=== PATIENT | male | born 1965 | race Caucasian/White ===

== ENCOUNTER → 2016-10-01 | Day surgery (SDC) | payer BC, OTHER ==
[~2016-10-01] VITALS: Ht 180.3 cm; Wt 127.3 kg
[~2016-10-01] MED LIST: CPR500 PO; CYM/30 PO; LIDOCAINE HCL 2% 2 ML VIAL (20MG/ML) ONE; LXP10 PO; MIDAZOLAM HCL 1 MG/ML 2ML VIAL ONE; MTR500 PO; MULT-506 PO; OXYC-57 PO; PANT1TAB48 PO; PANT40TA PO; PROPOFOL IV EMULSION 10 MG/ML 20 ML VIAL IV ONE; SODIUM CHLORIDE 0.9% 500ML 500 ML IV ONE
[2016-10-01 11:08] VITALS: Ht 180.3 cm; Wt 127.3 kg
--- NOTE | 2016-10-01 12:50 | Endo History and Physical ---
History & Physical Date of Service: Oct 01, 2016. Chief Complaint: Screening; Hx Diverticulitis Referring Physician: Heron Alaniz History of Present Illness 50 yo CM who presents for screening colonoscopy. Past Surgical History Hx Cardiac Surgery: No Hx Internal Defibrillator: No Hx Pacemaker: No Hx Abdominal Surgery: No Hx of Implantable Prosthesis: No Hx Post-Op Nausea and Vomiting: No Hx Cancer Surgery: No Hx Thoracic Surgery: No Hx Orthopedic: No Hx Urinary Tract Surgery: No Family History Polyp Social History Smoking Status: Never Smoker Hx Substance Use: No Hx Alcohol Use: Yes Allergies Coded Allergies: No Known Allergies (Unverified , 07/01/16) Current Medications Reported Home Medications Medications Dose Route/Sig Max Daily Dose Days Date Category Cymbalta (Duloxetine HCl) 30 Mg Cap 1 Cap PO DAILY 30 10/01/16 Reported Protonix (Pantoprazole) 40 Mg Tab 40 Mg PO DAILY 07/07/16 Rx Escitalopram Oxalate 10 Mg Tab 10 Mg PO QAM 07/03/16 Rx Metronidazole 500 Mg Tab 500 Mg PO TID 07/03/16 Rx Ciprofloxacin HCl (Ciprofloxacin) 500 Mg Tab 500 Mg PO BID 07/03/16 Rx Vital Signs Weight (Kilograms): 127.27 Height (Feet): 5 Height (Inches): 11 Date Time Temp Pulse Resp B/P Pulse Ox O2 Delivery O2 Flow Rate FiO2 10/01/16 11:17 37 62 20 136/80 99 Room Air Physical Exam General Appearance: WD/WN, no apparent distress Respiratory/Chest: Auscultation: breath sounds normal Cardiovascular: Heart Auscultation: RRR Abdomen: Bowel Sounds: normal Inspection & Palpation: soft, non-distended, no tenderness, guarding & rebound Assessment and Plan Assessment: 50 yo CM who presents for screening colonoscopy. Plan: Proceed with colonoscopy.
--- NOTE | 2016-10-01 13:05 | Discharge Instructions ---
Endoscopy Patient Instructions Date / Procedure(s) Performed Oct 01, 2016. Colonoscopy Allergy Information Coded Allergies: No Known Allergies (Unverified , 07/01/16) Discharge Date / Findings Oct 01, 2016. Colon polyp Diverticulosis Medication Instructions OK to resume all medications today as prescribed. Reported Home Medications Medications Dose Route/Sig Max Daily Dose Days Date Category Cymbalta (Duloxetine HCl) 30 Mg Cap 1 Cap PO DAILY 30 10/01/16 Reported Protonix (Pantoprazole) 40 Mg Tab 40 Mg PO DAILY 07/07/16 Rx Escitalopram Oxalate 10 Mg Tab 10 Mg PO QAM 07/03/16 Rx Metronidazole 500 Mg Tab 500 Mg PO TID 07/03/16 Rx Ciprofloxacin HCl (Ciprofloxacin) 500 Mg Tab 500 Mg PO BID 07/03/16 Rx Provider Instructions Activity Restrictions - No exercising or heavy lifting for 24 hours. - Do not drink alcohol the day of the procedure. - Do not drive a car or operate machinery until the day after the procedure. - Do not make any important decisions or sign important papers in 24 hours after the procedure. Following Day: - Return to full activity which may include returning to work/school. Diet Start your diet with liquids and light foods (jello, soup, juice, toast). Then eat your usual diet if not nauseated. Treatment For Common After Affects For mild abdominal pain, bloating, or excessive gas: - Rest - Eat lightly - Lie on right side Follow-Up Information Follow-up with Heron Alaniz as scheduled Anesthesia Information What You Should Know You have had a procedure that required some medicine to reduce anxiety and discomfort. This treatment is called moderate sedation. After receiving the treatment, you may be sleepy, but you will be able to breathe on your own. The effects of the treatment may last for several hours. Follow these instructions along with Activity/Diet recommendations noted above: * Do NOT do anything where dizziness or clumsiness would be dangerous. * Rest quietly at home today, then you can be up and about tomorrow. * Have a responsible person stay with you the rest of today. * You may have had an I.V. today. If so, you may take the dressing off later today. Recommendations Call your doctor if: * Trouble breathing * Continuous vomiting for more than 24 hours * Temperature above 101 degrees * Severe abdominal pain or bloating * Pain not relieved by pain medicine ordered * There is increased drainage or redness from any incision * A large amount of rectal bleeding greater than 2-3 tablespoons. (If you had a polyp/s removed or have hemorrhoids, a small amount of blood - from the rectum is to be expected.) * You have any unanswered questions or concerns. IN THE EVENT OF A SERIOUS EMERGENCY, GO TO THE NEAREST EMERGENCY ROOM Your discharge instructions were prepared by provider Jeferson Gray. Patient Instructions Signature Page Clifford Guzman Patient (or Guardian) Signature/Date: I have read and understand the instructions given to me by my caregivers. Caregiver/RN/Doctor Signature/Date: The above-named patient and/or guardian has received patient instructions on this date. + Original Patient Signature Page (only) stays with chart. Please make copy for patient.
--- NOTE | 2016-10-01 13:09 | GI REPORT ---
Procedure Date: 10/01/2016 11:59 AM Procedure: Colonoscopy Indications: Screening for colorectal malignant neoplasm Medicines: Monitored Anesthesia Care Complications: No immediate complications. Estimated Blood Loss: Estimated blood loss: none. Procedure: Pre-Anesthesia Assessment: - Prior to the procedure, a History and Physical was performed, and patient medications and allergies were reviewed. The patient's tolerance of previous anesthesia was also reviewed. The risks and benefits of the procedure and the sedation options and risks were discussed with the patient. All questions were answered, and informed consent was obtained. Prior Anticoagulants: The patient has taken no previous anticoagulant or antiplatelet agents. ASA Grade Assessment: II - A patient with mild systemic disease. After reviewing the risks and benefits, the patient was deemed in satisfactory condition to undergo the procedure. After I obtained informed consent, the scope was passed under direct vision. Throughout the procedure, the patient's blood pressure, pulse, and oxygen saturations were monitored continuously. The scope was introduced through the anus and advanced to the terminal ileum. The colonoscopy was performed without difficulty. The patient tolerated the procedure well. The quality of the bowel preparation was good. The terminal ileum, ileocecal valve, appendiceal orifice, and rectum were photographed. Findings: A 5 mm polyp was found in the transverse colon. The polyp was sessile. The polyp was removed with a hot snare. Resection and retrieval were complete. Multiple small-mouthed diverticula were found in the sigmoid colon. Impression: - One 5 mm polyp in the transverse colon, removed with a hot snare. Resected and retrieved. - Diverticulosis in the sigmoid colon. Recommendation: - Resume previous diet. - Continue present medications. - Repeat colonoscopy for surveillance based on pathology results. - Return to primary care physician as previously scheduled. Jeferson Gray DO 10/01/2016 1:09:24 PM This report has been signed electronically. Note Initiated On: 10/01/2016 11:59 AM
[2016-10-01 13:37] VITALS: BP 107/68; PULSE 67; O2SAT 97
--- NOTE | 2016-10-01 15:13 | Anesthesiology Progress Note ---
Anesthesia Post Op Note Date & Time Oct 01, 2016 at 15:13 Vital Signs Pain Intensity: 0 Vital Signs Past 12 Hours Date Time Temp Pulse Resp B/P Pulse Ox O2 Delivery O2 Flow Rate FiO2 10/01/16 13:37 67 20 107/68 97 Room Air 10/01/16 13:22 67 20 112/70 99 Room Air 10/01/16 13:07 58 20 100/44 96 Room Air 10/01/16 11:17 37 62 20 136/80 99 Room Air Notes Mental Status: alert / awake / arousable, participated in evaluation Pt Amnestic to Procedure: Yes Nausea / Vomiting: adequately controlled Pain: adequately controlled Airway Patency, RR, SpO2: stable & adequate BP & HR: stable & adequate Hydration State: stable & adequate Anesthetic Complications: no major complications apparent
== END | disposition home or self-care (01) ==
LOC: C.GI 10:55
PROVIDERS: ATTEND Internal Medicine
DX: Z12.11 Encounter for screening for malignant neoplasm of colon (principal); D12.3 Benign neoplasm of transverse colon; K57.90 Diverticulosis of intestine, part unspecified, without perforation or abscess without bleeding; Z83.71 Family history of colonic polyps

== ENCOUNTER → 2016-10-17 | Outpatient (CLI) | payer OTHER ==
[~2016-10-17] MED LIST changes: -LIDOCAINE HCL 2% 2 ML VIAL (20MG/ML) ONE; -MIDAZOLAM HCL 1 MG/ML 2ML VIAL ONE; -PROPOFOL IV EMULSION 10 MG/ML 20 ML VIAL IV ONE; -SODIUM CHLORIDE 0.9% 500ML 500 ML IV ONE
[2016-10-17 12:44] LABS: BASO % 0.5 %; BASO ABS # 0.03 K/uL (0-0.2); COMPLETE YES; EOS % 3.7 %; HEMATOCRIT 46.8 % (42-52); IG% 0.2 %; LYMPH % 30.4 %; LYMPH ABS # 1.96 K/uL (1.2-3.4); MEAN CELL VOLUME 90.9 fL (80-100); MEAN CORPUSCULAR HEMOGLOBIN 30.7 pg (25-34); MEAN CORPUSCULAR HGB CONC 33.8 g/dl (32-36); MONO % 12.3 %; NEUT % 52.9 %; PLATELET COUNT 255 K/uL (130-400); RED BLOOD COUNT 5.15 M/uL (4.7-6.1); WHITE BLOOD COUNT 6.44 K/uL (4.8-10.8)
[2016-10-17 12:53] LABS: URINE APPEARANCE CLEAR (CLEAR); URINE BILIRUBIN NEG (NEG); URINE COLOR YELLOW; URINE EPITHELIAL CELL AUTO 0-5 /lpf (0-5); URINE NITRITE NEG (NEG); URINE SPECIFIC GRAVITY 1.025 (1.000-1.030); UROBILINOGEN NEG (NEG); ZZUR CULT IF INDIC CLEAN CATCH NO
[2016-10-17 12:58] LABS: MANUAL MICROSCOPIC REQUIRED? NO; REVIEW REQ? NO
[2016-10-17 13:05] LABS: CHOLESTEROL/HDL RATIO 4.2; PROSTATE SPECIFIC ANTIGEN 0.923 ng/ml (0.000-4.000); THYROID STIMULATING HORMONE 2.62 uIu/ml (0.300-4.500)
== END | disposition home or self-care (01) ==
LOC: C.LABBFT 07:38
PROVIDERS: ATTEND Internal Medicine
DX: Z12.5 Encounter for screening for malignant neoplasm of prostate (principal); Z13.6 Encounter for screening for cardiovascular disorders; R80.9 Proteinuria, unspecified; D64.9 Anemia, unspecified; E66.01 Morbid (severe) obesity due to excess calories

== ENCOUNTER → 2016-11-01 | Outpatient (CLI) | payer OTHER ==
[2016-11-01 13:22] LABS: URINE APPEARANCE CLEAR (CLEAR); URINE BILIRUBIN NEG (NEG); URINE COLOR YELLOW; URINE EPITHELIAL CELL AUTO 0-5 /lpf (0-5); URINE NITRITE NEG (NEG); URINE SPECIFIC GRAVITY 1.019 (1.000-1.030); UROBILINOGEN NEG (NEG); ZZUR CULT IF INDIC CLEAN CATCH NO
[2016-11-01 13:24] LABS: MANUAL MICROSCOPIC REQUIRED? NO; REVIEW REQ? NO
== END | disposition home or self-care (01) ==
LOC: C.LABSPEC 12:32
PROVIDERS: ATTEND Internal Medicine
DX: R31.29 Other microscopic hematuria (principal)

== ENCOUNTER 2016-12-04 05:15 | Day surgery (SDC) | payer OTHER ==
[2016-11-14 14:29] VITALS: BMI 41.0
--- NOTE | 2016-11-14 15:02 | PAT Medication Instructions ---
Service Date Nov 14, 2016. Current Home Medication List Duloxetine HCl (Cymbalta), 1 CAP PO QPM Multivitamin (Multivitamin), 1 TAB PO QAM Pantoprazole (Protonix), 40 MG PO QAM Medication Instructions For Your Scheduled Surgery - Hold the following medications the morning of surgery: Multivitamin (Multivitamin), 1 TAB PO QAM - Take the following medications the morning of surgery with a sip of water: Pantoprazole (Protonix), 40 MG PO QAM - Take the following medications as scheduled the night before surgery: Duloxetine HCl (Cymbalta), 1 CAP PO QPM If you have any questions please call us at [phone] or [phone] ( Noreen) or [phone]
[2016-11-14 16:50] LABS: CALCIUM 8.9 mg/dl (8.5-10.1); CREATININE 1.1 mg/dl (0.60-1.40); POTASSIUM 3.7 mmol/L (3.5-5.1)
[~2016-12-04] VITALS: Ht 180.3 cm; Wt 133.3 kg
[~2016-12-04 05:15] MED LIST changes: -CPR500 PO; -LXP10 PO; -MTR500 PO; -OXYC-57 PO; -PANT1TAB48 PO
[2016-12-04 05:45] VITALS: BP 133/83; PULSE 59; TEMP 37; O2SAT 96; Ht 180.3 cm; Wt 133.3 kg
[2016-12-04] MEDS ORDERED: LACTATED RINGER'S 1000ML 1,000 ML IV SCH ×2 (06:00→07:58)
--- NOTE | 2016-12-04 06:32 | History & Physical Bridge Note ---
H&P Re-Evaluation Bridge Note: I have examined the patient, reviewed the History & Physical and in the interval since the performance of the History & Physical I have noted the following changes of clinical significance: No changes noted pt marked, at bedside
[2016-12-04] MEDS ORDERED: BUPIVACAINE 0.5 % 5 MG/1 ML MPF 30ML VIAL ONE (06:41)
[2016-12-04] MEDS ORDERED: BACITRACIN 50000 UNIT VIAL ONE (06:42)
[2016-12-04] MEDS ORDERED: LIDOCAINE HCL 2% 2 ML VIAL (20MG/ML) ONE (06:43)
[2016-12-04] MEDS ORDERED: ROCURONIUM BROMIDE 10 MG/ML 5 ML VIAL ONE (06:43)
[2016-12-04] MEDS ORDERED: PROPOFOL IV EMULSION 10 MG/ML 20 ML VIAL IV ONE (06:43)
[2016-12-04] MEDS ORDERED: FENTANYL CITRATE INJ 50 MCG/1 ML 2 ML VIAL ONE ×3 (06:43→08:27)
[2016-12-04] MEDS ORDERED: MIDAZOLAM HCL 1 MG/ML 2ML VIAL ONE (06:43)
[2016-12-04] MEDS ORDERED: ONDANSETRON INJ 2 MG/ML 2 ML VIAL ONE (07:20)
[2016-12-04] MEDS ORDERED: EpHEDrine SULFATE INJ 50 MG/ML AMP ONE (07:20)
[2016-12-04] MEDS ORDERED: CEFAZOLIN SOD 1 GM VIAL ONE (07:20)
[2016-12-04] MEDS ORDERED: DEXAMETHASONE SOD INJ 4 MG/ML VIAL ONE (07:20)
[2016-12-04] MEDS ORDERED: EpHEDrine SULFATE INJ 50 MG/ML AMP IV PRN (07:45)
[2016-12-04] MEDS ORDERED: ATROPINE SULFATE 0.1 MG/ML 5ML SYR IV PRN (07:45)
[2016-12-04] MEDS ORDERED: ONDANSETRON INJ 2 MG/ML 2 ML VIAL IV PRN ×2 (07:45→08:00)
[2016-12-04] MEDS ORDERED: HYDROmorphone INJ 0.5 MG/0.5 ML SYR IV PRN (07:45)
[2016-12-04] MEDS ORDERED: FENTANYL CITRATE INJ 50 MCG/1 ML 2 ML VIAL IV PRN (07:45)
--- NOTE | 2016-12-04 07:59 | [facility] Post Operative Brief Note ---
Immediate Operative Summary Operative Date Dec 04, 2016. Pre-Operative Diagnosis Incarcerated Umbilical Hernia Post-Operative Diagnosis Same as preoperative Procedure(s) Performed Open Umbilical Hernia Repair with Mesh and resection inc omentum Surgeon Dr. William Lora Displayer Merchandise Surgeon(s) Bacilio Pollack PA-C Estimated Blood Loss 5ml Findings sixto 2 cm defect with lobulated inc omentum Specimens A.) Incarcerated Omentum Anesthesia .5% marcaine premptive and field block
[2016-12-04] MEDS ORDERED: KETOROLAC TROMETHAMINE 30 MG/ML VIAL IV. PRN (08:00)
[2016-12-04] MEDS ORDERED: MoRPHine SULFATE 2 MG/ML CARP IV PRN (08:00)
[2016-12-04] MEDS ORDERED: OXYC-57 PO (08:00)
--- NOTE | 2016-12-04 08:02 | Medical Student: [facility] ---
Immediate Operative Summary Operative Date Dec 04, 2016. Pre-Operative Diagnosis Umbilical hernia Post-Operative Diagnosis Same as above Procedure(s) Performed Open umbilical hernia repair with mesh Surgeon Dr. Lora Echocardiologist Surgeon(s) Bacilio Murillo PA-C Estimated Blood Loss 5 mL Findings Umbilical hernia protruding from abdominal wall Fluids (cc crystalloids) 800 cc Specimens Omentum Drains None Anesthesia LMA/Block Complication(s) None Disposition Recovery Room / PACU
--- NOTE | 2016-12-04 08:02 | Discharge Instructions ---
Discharge Instructions Date of Service Dec 04, 2016. Visit Reason for Visit: Umbilical Hernia Discharge Discharge Diagnosis / Problem: umbilical hernia repiar Discharge Goals Goal(s): Decrease discomfort Activity Recommendations Activity Limitations: as noted below Lifting Limitations: no more than 10 pounds Shower/Bathe: tomorrow (shower over bandage it is waterproof, remove bandage in 2-3 days) Driving or Machine Use: resume 3 days after discharge (if not taking Percocet) Anesthesia . Post Anesthesia Instructions: If you have had General Anesthesia or IV Sedation: * Do not drive today. * Resume driving when surgeon permits. * Do not make important decisions or sign legal documents today. * Call surgeon for: 1. Temperature elevations greater than 101 degrees F. 2. Uncontrollable pain. 3. Excessive bleeding. 4. Persistent nausea and vomiting. 5. Medication intolerance (nausea, vomiting or rash). * For nausea and vomiting use only clear liquids such as: tea, soda, bouillon until nausea subsides, then gradually increase diet as tolerated. * If you have any concerns or questions, call your surgeon's office. If physician is unavailable and it is an emergency, call 911 or go to the nearest emergency room. . Instructions / Follow-Up Instructions / Follow-Up Dr. Lora in 1 week, call [phone] if you do not already have an appt or for any questions Diet Recommendations Recommended Home Diet: no limitations Procedures Procedures Performed: Open Umbilical Hernia Repair with Mesh and resection inc omentum Pending Studies Studies pending at discharge: no Medical Emergencies . Who to Call and When: Medical Emergencies: If at any time you feel your situation is an emergency, please call 911 immediately. . Non-Emergent Contact Non-Emergency issues call your: Surgeon Call Non-Emergent contact if: you have a fever, temperature is above 101.5, your pain is not controlled, wound has increased drainage, wound has increased redness . . "Provider Documentation" section prepared by Bacilio Pollack.
[2016-12-04] MEDS ORDERED: OXYCODONE/ACETAMINOPHEN 5-325 TAB PO PRN (08:15)
--- NOTE | 2016-12-04 08:38 | Anesthesiology Progress Note ---
Anesthesia Post Op Note Date & Time Dec 04, 2016 at 08:39 Vital Signs Pain Intensity: 5 Vital Signs Past 12 Hours Date Time Temp Pulse Resp B/P Pulse Ox O2 Delivery O2 Flow Rate FiO2 12/04/16 08:33 65 12 12/04/16 08:33 62 12 90 12/04/16 08:30 121/84 12/04/16 08:28 63 12 12/04/16 08:28 64 12 91 12/04/16 08:25 125/85 12/04/16 08:23 69 16 12/04/16 08:23 69 16 91 12/04/16 08:20 135/87 12/04/16 08:18 71 17 99 12/04/16 08:18 71 17 12/04/16 08:15 132/88 12/04/16 08:13 74 10 99 12/04/16 08:13 74 10 12/04/16 08:10 134/88 12/04/16 08:08 70 13 98 12/04/16 08:08 71 13 12/04/16 08:05 133/88 12/04/16 08:03 72 15 97 12/04/16 08:03 72 15 12/04/16 08:00 141/87 12/04/16 07:58 72 13 139/82 96 12/04/16 07:58 72 13 12/04/16 07:58 36.3 78 14 139/82 96 Mask 10 12/04/16 05:45 37 59 18 133/83 96 Room Air Notes Mental Status: alert / awake / arousable, participated in evaluation Pt Amnestic to Procedure: Yes Nausea / Vomiting: adequately controlled Pain: adequately controlled Airway Patency, RR, SpO2: stable & adequate BP & HR: stable & adequate Hydration State: stable & adequate Anesthetic Complications: no major complications apparent
[2016-12-04 08:50] VITALS: BP 132/85; PULSE 73; TEMP 36.8; O2SAT 92
--- NOTE | 2016-12-04 09:02 | OPERATIVE REPORT ---
DATE OF OPERATION: 12/04/2016 SURGEON: William Lora MD TONE ARTIST APPRENTICE: Bacilio Pollack PA-C PREOPERATIVE DIAGNOSIS: Incarcerated umbilical hernia. POSTOPERATIVE DIAGNOSIS: Same multilobular. PROCEDURE: Repair of incarcerated umbilical hernia and partial resection of incarcerated omentum and repair was done with 4.3 cm C-Qur mesh. DESCRIPTION OF PROCEDURE: The patient was brought into the operating room theater. The abdomen was shaved, and prepped with Betadine scrubbing solution and properly draped. Systemic antibiotics were given. We used 0.5% Marcaine without epinephrine to infiltrate 4-point around the umbilical area. The defect itself appeared to be coming through centrally in the umbilical tissue. We made a smiley incision from 3-9 o'clock position, deepened through subcutaneous tissue. We went onto the abdominal wall and identified the fascia inferiorly and we dissected out the incarcerated hernia from the omental tissue, paying attention not to devascularize the skin itself. We used a knife rather than a cautery for most of this freeing up the hernia sac. Once we had freed this up, we were able to reduce it partially in the abdomen. It was mostly adherent to the anterior abdominal wall at the defect. Once we freed this up, there was a septated area on the right side. We just divided it and reduced everything into the abdomen placing a finger underneath it. He has some little oozing that we controlled. There was a piece of omentum that continued to protrude through and we resected that. Once we had outlined this, the defect maybe 2.5 cm in length. Therefore, I elected to bring a 4.3 cm C-Qur mesh and laid into the abdomen. The outer ring was then attached in at least 4-6 places to take sutures from outside the mesh, onto the mesh, and back outside, so it was adherent to the anterior abdominal wall. The 2 strands were then sutured along the fascial defect without any tension on the defect itself and then we put some more interrupted 2-0 nylon sutures around the outer ring. The repair appeared to be solid and it was tension free. The area was checked for hemostasis and appeared satisfactory. We then used more local anesthetic of 0.5% Marcaine to infiltrate around the defect itself. Closed the wound in 2-0 Dexon reattaching the umbilical tissue onto the mesh itself and shira for skin edges. Dressing was applied. The procedure was tolerated well by the patient. Estimated blood loss was approximately 5 mL. The patient was taken to recovery room in good condition. I attest to the content of the Intraoperative Record and any orders documented therein. Any exceptio ns are noted below.
[2016-12-04 09:20] VITALS: BP 122/74; PULSE 74; O2SAT 94
[2016-12-04] MEDS ORDERED: KETOROLAC TROMETHAMINE 30 MG/ML VIAL ONE (09:29)
[2016-12-04 09:50] VITALS: BP 127/74; PULSE 76; TEMP 36.5; O2SAT 96
== END 2016-12-04 10:10 | disposition home or self-care (01) ==
LOC: C.ACU 05:15
PROVIDERS: ATTEND Surgery
DX: K42.0 Umbilical hernia with obstruction, without gangrene (principal); F41.8 Other specified anxiety disorders; K21.9 Gastro-esophageal reflux disease without esophagitis; E66.01 Morbid (severe) obesity due to excess calories; Z87.891 Personal history of nicotine dependence

== ENCOUNTER → 2016-12-28 | Outpatient (CLI) | payer OTHER ==
[~2016-12-28] VITALS: Ht 180.3 cm; Wt 133.1 kg
[~2016-12-28] MED LIST changes: +OXYC-57 PO
[2016-12-28 13:39] VITALS: BP 131/86; PULSE 70; Ht 180.3 cm; Wt 133.1 kg
== END | disposition home or self-care (01) ==
LOC: C.NEUR 12:34
PROVIDERS: ATTEND Internal Medicine Pulmonary Disease
DX: R06.83 Snoring (principal); E66.01 Morbid (severe) obesity due to excess calories; R53.83 Other fatigue

== ENCOUNTER → 2017-01-14 | Outpatient (CLI) | payer OTHER ==
--- NOTE | 2017-01-17 10:49 | POLYSOMNOGRAPH REPORT ---
CLINICAL DATA: A 51-year-old male with BMI of 40.9 referred by myself and Dr. Alaniz with symptoms of loud snoring to the point where his sleeps in another room and episodes of gasping at night with fatigue. On the evening of 01/14/2017, a home sleep apnea test was performed using a myJambi type 3 monitor. RECORDING RESULTS: Total recording time was 10 hours. The patient's estimated sleep time and the patient monitoring time was 9 hours. RESPIRATORY DATA: Moderate sleep apnea was documented. The AURA was 16.7. There were 8 obstructive apneic episodes and 142 hypopneic episodes recorded. The longest respiratory event recorded was 51 seconds. OXIMETRY DATA: Nocturnal hypoxemia was seen. Oxygen korin was 76%. Mean saturation was 93%. Time below 89% was 34 minutes. HEART RATE DATA: Heart rates ranged from 45-58 beats per minute. SNORING DATA: Loud snoring was recorded throughout the entire night. IMPRESSION: Moderate sleep apnea/hypopnea. RECOMMENDATIONS: The patient may benefit from use of auto CPAP, a repeat sleep study with CPAP, or use of an oral appliance. Clinical correlation is needed. DENISE
== END | disposition home or self-care (01) ==
LOC: C.NEUR 08:35
PROVIDERS: ATTEND Internal Medicine Pulmonary Disease
DX: G47.30 Sleep apnea, unspecified (principal); R53.83 Other fatigue; E66.01 Morbid (severe) obesity due to excess calories; R06.83 Snoring

== ENCOUNTER 2022-01-17 16:05 | Observation (INO) ==
[2022-01-17] MEDS ORDERED: SODIUM CHLORIDE 0.9% 1000ML 1,000 ML IV ONE (16:16)
[2022-01-17] MEDS ORDERED: MULTI-VITAMIN INFUSION 10 ML, THIAMINE HCL 100 MG, FOLIC ACID 1 MG in SODIUM CHLORIDE 0... IV ONE (16:28)
[2022-01-17 16:42] LABS: Basophils # (auto) 0.03 K/uL (0-0.2); Basophils % (auto) 0.3 %; Eosinophils # (auto) 0.11 K/uL (0-0.5); Hematocrit (blood only) 45.3 % (42-52); Immature Granulocytes # (auto) 0.02 K/uL (0.00-0.02); Immature Granulocytes % (auto) 0.2 %; Lymphocytes # (auto) 1.85 K/uL (1.2-3.4); Lymphocytes % (auto) 17.6 %; Mean Corpuscular Hemoglobin 30.4 pg (25-34); Mean Corpuscular Hgb Conc 33.1 g/dL (32-36); Mean Corpuscular Volume 91.7 fL (80-100); Mean Platelet Volume 10.8 fL (7.4-10.4); Monocytes % (auto) 9.5 %; Neutrophils # (auto) 7.53 K/uL (1.4-6.5); Neutrophils % (auto) 71.4 %; Platelet Count 276 K/uL (130-400); RDW Coefficient of Variation 13.1 % (11.5-14.5); RDW Standard Deviation 43.7 fL (36.4-46.3); Red Blood Count 4.94 M/uL (4.7-6.1); White Blood Count 10.54 K/uL (4.8-10.8)
--- NOTE | 2022-01-17 17:10 | CT Scan Report ---
CT head/brain wo con CLINICAL HISTORY: 56 years-old Male with syncope, fall, R periorbital contusion/hematoma. Acute post traumatic head and facial injury TECHNIQUE: Multiple axial CT images of the head were obtained without contrast. A dose lowering tech nique was utilized adhering to the principles of ALARA. COMPARISON: CT maxillofacial same day. FINDINGS: No acute intracranial hemorrhage, midline shift, intracranial mass, hydrocephalus, territorial ischem ia or abnormal extra-axial collection. Mild involutional changes. Calcifications of the falx cerebri. The calvarium is intact. 9.6 x 1.4 cm right supraorbital/periorbital hematoma. The paranasal sinuses, mastoid air cells, and middle ear cavities are clear. IMPRESSION: 1. No acute intracranial abnormality. 2. Large right supraorbital/periorbital hematoma. ACT 112: Negative or not required by law. The above report was generated using voice recognition software. It may contain grammatical, syntax o r spelling errors. Electronically signed by: Karri Hallman M.D. 01/17/2022 5:08 PM
--- NOTE | 2022-01-17 17:13 | CT Scan Report ---
CT facial bones wo con CLINICAL HISTORY: 56 years-old Male presenting with syncope, fall, R periorbital contusion/hematoma. Acute right-sided facial injury status post fall COMPARISON STUDY: Head CT of same day TECHNIQUE: High-resolution CT scan of the facial bones is performed. Images are reviewed in the axia l, sagittal, and coronal planes. IV contrast was not administered for this examination. A dose lower ing technique was utilized adhering to the principles of ALARA. CT DOSE: 886.89 mGy.cm FINDINGS: There is no evidence of facial bone fracture. The bony orbits are intact and the orbital contents are within normal limits. The zygomatic arches, nasal bones, and pterygoid plates are preserved. The max illa and mandible are intact. The mastoid air cells are clear. There is mild mucosal thickening of the ethmoid air cells. Multileve l degenerative changes of the cervical spine. Partially imaged brain parenchyma is within normal limi ts. 9.6 x 1.4 cm right supraorbital/periorbital hematoma. IMPRESSION: 1. No acute facial bone fracture. 2. Large right periorbital/supraorbital hematoma. ACT 112: Negative or not required by law. The above report was generated using voice recognition software. It may contain grammatical, syntax o r spelling errors. Electronically signed by: Karri Hallman M.D. 01/17/2022 5:12 PM
[2022-01-17 17:26] LABS: Albumin Globulin Ratio 1.5 (0.9-2); Albumin Level 4.3 gm/dl (3.4-5.0); BUN Creatinine Ratio 21.5 (10-20); Calcium 9.5 mg/dl (8.5-10.1); Creatinine Clr Calc Pharmacy 84.4 ml/min; Est GFR (African American) 67.5 ml/min; Est GFR (Non-African American) 58.3 ml/min; Globulin 2.8 gm/dl (2.5-4.0); Magnesium 1.8 mg/dl (1.7-2.4); Phosphorus 3.1 mg/dl (2.5-4.9); Total Protein 7.1 gm/dl (6.0-8.3)
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
--- NOTE | 2022-01-17 17:41 | XRay Report ---
SINGLE VIEW CHEST CLINICAL HISTORY: Atypical chest pain. Syncope. FINDINGS: 2 AP, portable, upright chest radiographs are compared to study dated 07/04/2016. The exami nation is degraded by portable technique and apical lordotic positioning. The cardiomediastinal silho uette is top normal for projection. The lungs and pleural spaces are clear. No pneumothorax is seen. The bony thorax is grossly intact. IMPRESSION: No active disease in the chest. ACT 112: Negative or not required by law. Electronically signed by: Deven Stahl M.D. 01/17/2022 5:40 PM
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
[2022-01-17 19:25] LABS: Potassium 4.6 mmol/L (3.5-5.1)
[2022-01-17 19:50] LABS: Troponin I High Sensitivity 3.7 pg/ml (0-20)
[2022-01-17] MEDS ORDERED: ONDANSETRON INJ 2 MG/ML 2 ML VIAL IV PRN (21:09)
[2022-01-17] MEDS ORDERED: oxyCODONE HCL IR 5 MG TAB (IMMEDIATE RELEASE) PO PRN ×2 (21:09)
[2022-01-17] MEDS ORDERED: GLUCAGON FOR INJ 1 MG VIAL SQ PRN (21:09)
[2022-01-17] MEDS ORDERED: ACETAMINOPHEN 325 MG TAB PO PRN (21:09)
[2022-01-17] MEDS ORDERED: POLYETHYLENE (MIRALAX) 17 GM PACK PO PRN (21:09)
[2022-01-17] MEDS ORDERED: ATORVASTATIN 40 MG TAB PO SCH (21:09)
[2022-01-17] MEDS ORDERED: PANTOprazole 40 MG TAB PO PRN (21:09)
[2022-01-17] MEDS ORDERED: GLUCOSE 40% GEL 15 GM TUBE PO PRN (21:09)
[2022-01-17] MEDS ORDERED: CARBOHYDRATES FOR HYPOGLYCEMIA PO PRN (21:09)
[2022-01-17] MEDS ORDERED: DEXTROSE 50% 50 ML SYRINGE IV PRN (21:09)
[2022-01-17] MEDS ORDERED: GLUCOSE 10 TABS/TUBE PO PRN (21:09)
[2022-01-17] MEDS: INSULIN ASPART PER UNIT SC SCH (21:34)
[2022-01-18 06:11] LABS: Basophils # (auto) 0.01 K/uL (0-0.2); Basophils % (auto) 0.1 %; Eosinophils # (auto) 0.17 K/uL (0-0.5); Eosinophils % (auto) 2.4 %; Hematocrit (blood only) 44.3 % (42-52); Hemoglobin 14.2 g/dL (14.0-18.0); Immature Granulocytes # (auto) 0.01 K/uL (0.00-0.02); Immature Granulocytes % (auto) 0.1 %; Lymphocytes # (auto) 2.34 K/uL (1.2-3.4); Lymphocytes % (auto) 33.4 %; Mean Corpuscular Hemoglobin 29.8 pg (25-34); Mean Corpuscular Hgb Conc 32.1 g/dL (32-36); Mean Corpuscular Volume 92.9 fL (80-100); Mean Platelet Volume 10.8 fL (7.4-10.4); Monocytes # (auto) 0.87 K/uL (0.11-0.59); Monocytes % (auto) 12.4 %; Neutrophils % (auto) 51.6 %; Platelet Count 267 K/uL (130-400); RDW Coefficient of Variation 13.2 % (11.5-14.5); RDW Standard Deviation 45.2 fL (36.4-46.3); Red Blood Count 4.77 M/uL (4.7-6.1)
[2022-01-18 06:27] LABS: Albumin Globulin Ratio 1.6 (0.9-2); Albumin Level 3.9 gm/dl (3.4-5.0); Bilirubin,Total 1.1 mg/dl (0.2-1.0); Calcium 8.9 mg/dl (8.5-10.1); Creatinine Clr Calc Pharmacy 110.5 ml/min; Est GFR (African American) 91.5 ml/min; Globulin 2.4 gm/dl (2.5-4.0); Potassium 4.2 mmol/L (3.5-5.1); Total Protein 6.3 gm/dl (6.0-8.3)
[2022-01-18 06:52] LABS: Folate (Folic Acid) > 22.30 ng/ml (>5.38)
[2022-01-18 06:53] LABS: Vitamin B12 846 pg/ml (180-914)
--- NOTE | 2022-01-18 08:34 | Ultrasound Report ---
BILATERAL CAROTID DOPPLER STUDY HISTORY: syncope unknown etiology COMPARISON: None. TECHNIQUE: Real-time, grayscale, and color Doppler sonography of the carotid arteries was performed. Imaging reviewed in the transverse and longitudinal planes. All measurements were calculated based on NASCET criteria. FINDINGS: Antegrade flow is seen in the bilateral vertebral arteries. No significant atherosclerotic plaque identified within the carotid arteries. The peak systolic velocity within the right ICA is 79 cm/s. The right systolic ratio is 0.6. The peak systolic velocity within the left ICA is 65 cm/s. The left systolic ratio is 0.6. IMPRESSION: No hemodynamically significant stenosis seen within the carotid arteries. ACT 112: Negative or not required by law. Electronically signed by: Juan Daniel M.D. 01/18/2022 8:32 AM
[2022-01-18] MEDS ORDERED: DULoxetine HCL 30 MG CAP PO SCH (09:00)
[2022-01-18] MEDS ORDERED: FOLIC ACID 1 MG TAB PO SCH (09:00)
[2022-01-18] MEDS ORDERED: lisinopril 20 MG TAB PO SCH (09:00)
[2022-01-18] MEDS ORDERED: THIAMINE HCL 50 MG TABLET PO SCH (09:00)
[2022-01-18] MEDS ORDERED: THIAMINE HCL 100 MG TAB PO SCH (09:00)
[2022-01-18] MEDS: INSULIN ASPART PER UNIT SC SCH ×2 (09:29→13:07)
--- NOTE | 2022-01-18 12:35 | Discharge Summary ---
Date of Service January 18, 2022 Admission HPI Per Admitting Provider Mr. Guzman is a 56-year-old male with past medical history of alcohol abuse (sober 1 month), hypertension, hyperlipidemia, diabetes, MAO, and depression who presents emerged department accompanied by his after the patient had an unwitnessed syncopal episode. Patient is experiencing short term memory loss at time of my visit, so history is gathered from both him and his . received a call around 3:00 PM today from patient who said he fell and needed her to come home to take him to the emergency room. She states he was speaking normally and making sense. When she arrived home, he was confused about what happened, now in the ED he is asking what happened, how he got here, forgot that he had been sober for 1 month, etc. talked to a neighbor who did see the patient painting at one point today, she also talked to a friend who patient was supposed to group leader today around 1 PM, who stated patient did complete that task and was in normal state at that time. Assume the fall was sometime between 1-3, possibly fell from a ladder. Besides his eye pain, he is without pain. Prior to today's event, he had feeling near baseline, however has had intermittent episodes of dizziness associated with activity such as getting up around after putting bre down, or going up and down steps. Not associated with shortness of breath, chest pain, palpitations. Has been checking his sugars daily at home, states they are between 130 and 150. In ED, he has episodes of mild bradycardia with HR mid-high 50s, otherwise VSS and wnl. Labs larely unremarkable, significant for Na 134, all other electrolytes wnl. Renal function at baseline. Glucose 121. LFTs wnl. Initial trop 3.8, repeat pending. EtOH < 10.0. Head CT without acute intracranial abnormality, face CT with a large right supraorbital/periorbital hematoma. CXR unremarkable. Principal Diagnosis Syncope, concussion Discharge Exam General: A&Ox3. NAD. Cooperative. HEENT: Right upper eye/orbit hematoma. On manual traction/pupil visualized. Reactive to light, vision intact. Small lateral subconjunctival hemorrhage present. Hearing grossly intact. Face/skull is without crepitus. Pulm: CTAB A&P. -wheezes, -rales, -rhonchi. Symmetrical chest rise. No increase in work of breathing. No respiratory distress. Cardiac: RRR, -mrg. Radial pulses intact and symmetrical. Abdominal: Nontender, nondistended, soft. BS present. Extremities: Warm, dry. No dysdiadochokinesia. Sensation intact in hands and feet to soft touch. Distal extremity strength 5/5 bilaterally without deficit. Gait normal. Unable to complete single-leg stance or tandem stance balance for more than 5 seconds due to instability, patient reports this would normally not be difficult for him Discharge Data Allergies Allergy/AdvReac Type Severity Reaction Status Date / Time No Known Allergies Allergy Verified 01/17/22 17:36 Consultations 01/17/22 17:44 ED Decision to Admit Stat Ordered Studies 01/17/22 16:29 CT facial bones wo con Stat CT head/brain wo con Stat 01/18/22 US carotid doppler BI Routine Hospital Course (1) Syncope: Clifford is a 56-year-old male with a reported history of orthostatic symptoms who presented after an episode of syncope which caused him to strike his right orbit. CT showed no stroke or intracranial abnormality, no evidence of fracture on head/facial CT. Patient did have retrograde and a short period of anterograde amnesia following this event and does not remember coming to the hospital. At discharge assessment no focal neurologic deficits although impaired single-leg balance. Patient does have a history concussions many years ago. EKG showed normal sinus rhythm. Orthostatic vitals were normal. On overnight telemetry his rate was high 50s and increased to 60s-80s during the day. No hypotension during admission, was ambulating without lightheadedness/dizziness at discharge he did not have any episodes of lightheadedness, hypotension, or symptoms associated with bradycardia during monitoring. He is not on a beta-ana. He did not show any rhythm abnormalities. High sensitivity troponin normal. Carotid Dopplers without occlusion. Suspect patient with orthostatic symptoms which may have been worsened by lisinopril when working is to position to standing with subsequent concussion, DDx includes arrhythmia and symptomatic bradycardia. To do as outpatient: 1. Follow-up to PCP. Holter monitor being organized/ordered by nurse navigator with follow-up to PCP. 2. Weekly follow-up for concussion 3. Follow-up lisinopril titration. Decrease to 5 mg - 10 mg as noted below Syncope, ?orthostatic hypotension DDx includes symptomatic bradycardia -Patient reports intermittent dizziness when standing from a stooped position. Orthostatics normal during admission. Patient has had rapid improvement in his blood sugars, some weight loss intentional with diet and exercise in the preceding few weeks. Has been on lisinopril 20 mg, and has noticed some increased lightheadedness over this time. Patient was normotensive during admission, lisinopril was dose reduced to 5 mg with instructions to increase if home checks are greater than 140 -Troponin negative -Carotid Dopplers negative EKG without acute findings No abnormalities on telemetry during admission, heart rate in the high 50s overnight which improved to 6080s during the day with no symptomatic bradycardia observed during admission Orthostatics during admission 109/71 heart rate sitting, standing 114/67 heart rate 74, standing 3 minutes 114/74 heart rate 80 Echo with normal LV SF, EF 55-60%, no wall motion abnormalities, no significant valvular abnormalities (2) Concussion: - No changes seen on head CT. - Not on anticoagulation. Some balance impairment, no continued amnesia Serial follow-up as outpatient (3) Alcohol abuse: - History of alcohol abuse/binge drinking, previously he drank about six 30-packs in about one month or 10-12 "pounders" in a night. - Stopped drinking one month ago, EtoH negative at admission No signs of alcohol withdrawal during admission - LFTs wnl at admit B12 and folate were normal (4) Diabetes: - Jardiance and metformin at home. BGMs have been in 130-140s since quitting alcohol 4 weeks ago. - Accucheks ACHS with SSI. - A1c in December ==> 13.0. - Diabetic/heart healthy diet. Has close follow-up for this as an outpatient, reports is aware his A1c was 13 but has been substantially better as noted with intensive outpatient monitoring and have consistently well below 200 in the preceding weeks, no lows less than 80 BSG's adequate during admission (5) Chronic kidney disease, stage 3a: - Cr at baseline. - Avoid nephrotoxic agents, renally dose medications as able. - Follow on AM labs. (6) Hypertension: - Dose reduced as noted (7) Hyperlipidemia: - Continue atorvastatin 40 mg daily. (8) Obstructive sleep apnea, adult: - CPAP at night. (9) GERD (gastroesophageal reflux disease): - Continue Protonix 40mg daily. (10) Depression with anxiety: - Continue Cymbalta 30 mg daily. - OBS on med/tele. - SCDs for DVT ppx. - Full Code. Total Time Total Time Spent Total Time Spent (In Minutes): Time spend day of discharge 40 minutes including direct patient care, documentation, review of labs and images, and coordination of care. Discharge Plan Discharge Items Patient Disposition: Home - Self-Care Reason For Visit: SYNCOPE Discharge Diagnosis: Syncope Activity: Per Instructions section Non-emergency contact: Primary Care Provider Call non-emergency contact if: you have any medication questions, your symptoms worsen, your pain is not controlled, your pain is worsening, your pain is unusual for you and your pain is concerning for you Follow-up/Referrals: Heron Alaniz MD [Primary Care Provider] - 01/25/22 11:00 am Diet: Carb Consistent or DM2 Addtl Attending Provider Instructions: You are seen in the hospital for an episode of syncope. You showed evidence of a concussion from your fall and had some memory loss improving the next day. You sustained a right eye hematoma. Your vision was intact, you did have a small right subconjunctival hemorrhage.A CAT scan of your head and face did not show any fractures, intracranial abnormalities, or signs of stroke. Ultrasound of your carotid arteries in the neck were normal and did not show any evidence of blockages. You did not show any heart rhythm abnormalities on monitoring overnight, did not show any evidence of a heart attack. Your heart rate was intermittently slightly low overnight, this returned to normal levels during the day and was not correlated with symptoms of low blood pressure or lightheadedness. You did report a history of dizziness when standing up quickly after being in a crouched position or working, she may have contributed to your fall. You not been prescribed any new medications. You should have weekly follow-up for your concussion with your primary care provider. Please follow-up with your primary care provider you continue to have symptoms. Your lisinopril has been decreased to 5mg daily. If your blood pressure is >140 consistently, you may increase this to 10mg. To follow for potential symptomatic bradycardia or infrequent but concerning heart rhythms a temporary outpatient Holter monitor/monitor technician is being set up for you by the nurse navigator. If you do not receive a call regarding this monitor please call your primary care physician to follow-up within 2 days If you develop any new or worsening symptoms including fever, chills, sweats, chest pain, chest pressure, difficulty breathing, uncontrolled nausea/vomiting, rash, wheezing, passing out or nearly passing out, bleeding, black/bloody bowel movements, or other new or concerning symptoms please call your primary care physician, or call 911 for re-evaluation in the emergency department if you are very concerned. Pending Studies at Discharge: No Stand-Alone Forms: [facility] OwnerListens, Smoking Cessation Medications and DC Order Prescriptions: New lisinopril 10 mg tablet 5 mg PO DAILY 30 Days Qty: 15 RF: 0 Continued atorvastatin 40 mg tablet 40 mg PO QPM Qty: 90 RF: 3 lisinopril 20 mg tablet 20 mg PO QAM Qty: 90 RF: 3 pantoprazole 40 mg tablet,delayed release (DR/EC) 40 mg PO DAILY PRN (Reason: gerd) Qty: 90 RF: 3 duloxetine 30 mg capsule,delayed release(DR/EC) 30 mg PO DAILY Qty: 90 RF: 3 Jardiance 10 mg tablet 10 mg PO DAILY Qty: 90 RF: 3 (DME) Accu-Chek Guide test strips Strip See Rx Instructions .Route Qty: 200 RF: 3 (DME) lancets [Accu-Chek Softclix Lancets] Misc See Rx Instructions .Route Qty: 200 RF: 3 metformin 500 mg tablet extended release 24 hr 1,000 mg PO DAILY Qty: 180 RF: 3 Discharge Orders: Discharge Order (Routine); Ordered 01/18/22 Ordered By: Dany Cooper Admission Data Admit Date/Time: 01/17/22 18:18 Attending Provider: Dany Cooper Admit Provider: Dany Cooper Primary Care Provider: Heron Alaniz Other Providers: Dany Cooper Other Interventions: Discharge Summary Assessment (RN) Last Done: 01/18/22 15:03 Coding Level of Care Code D/C DAY MANAGEMENT >30 MINS Diagnoses Syncope R55 Concussion S06.0X9A Alcohol abuse F10.10 Diabetes E11.9 Chronic kidney disease, stage 3a N18.31 Hypertension I10 Hyperlipidemia E78.5 Obstructive sleep apnea, adult G47.33 GERD (gastroesophageal reflux disease) K21.9 Depression with anxiety F41.8
--- NOTE | 2022-01-18 22:45 | XCELERA ---
[id number]
--- NOTE | 2022-01-19 14:32 | Electrocardiogram Report ---
Test Reason : Blood Pressure : / mmHG Vent. Rate : 069 BPM Atrial Rate : 069 BPM P-R Int : 162 ms QRS Dur : 100 ms QT Int : 392 ms P-R-T Axes : 059 003 025 degrees QTc Int : 420 ms Normal sinus rhythm Possible Left atrial enlargement Borderline ECG When compared with ECG of 14-NOV-2016 15:10, No significant change was found Confirmed by Nelson Ga ([id number]) on 01/19/2022 2:31:58 PM Referred By: REFERRED SELF Confirmed By:Nelson Ga
== END 2022-01-18 16:33 | disposition home or self-care (01) ==
LOC: 2N 16:05 → ED 16:05 → 2N 20:52